=== PATIENT | male | born 1960 | race Caucasian/White ===

== ENCOUNTER 2021-07-17 13:15 | Emergency (ER) | payer OTHER ==
[2021-07-17 13:28] VITALS: BP 140/86; PULSE 65; TEMP 97.7; BMI 28.0
[2021-07-17] MEDS ORDERED: PHENAZOPYRIDINE HCL 100 MG TABLET (FP) PO ONE (13:51)
[2021-07-17] MEDS ORDERED: PHENAZOPYRIDINE HCL 100 MG TABLET (FP) ONE (13:55)
[2021-07-17 14:43] LABS: EPITHELIAL CELLS RARE /hpf
== END 2021-07-17 14:00 | disposition home or self-care (01) ==
LOC: FER 13:15
DX: R35.0 Frequency of micturition (principal); R19.7 Diarrhea, unspecified
CPT/HCPCS: 81003; 81015; 87086; 99283-25

== ENCOUNTER 2021-07-18 17:12 | Emergency (ER) | payer OTHER ==
[2021-07-18 17:28] VITALS: BP 122/72; PULSE 65; TEMP 98; BMI 28.0
== END 2021-07-18 18:20 | disposition home or self-care (01) ==
LOC: FER 17:12
DX: R35.0 Frequency of micturition (principal)
CPT/HCPCS: 81003; 81015; 87086; 99283-25

== ENCOUNTER 2022-07-07 19:11 | Emergency (ER) | payer OTHER ==
[2022-07-07 19:32] VITALS: BP 152/89; PULSE 65; RESP 17; TEMP 98.1; BMI 28.5
[2022-07-07] MEDS ORDERED: AZITHROMYCIN 250 MG TABLET ONE (20:13)
[2022-07-07] MEDS ORDERED: AZITHROMYCIN IVPB 500 MG in DEXTROSE 5%-WATER - 250 ML IVPB ONE (20:15)
[2022-07-07] MEDS ORDERED: AZITHROMYCIN 250 MG TABLET PO ONE (20:16)
== END 2022-07-07 20:40 | disposition home or self-care (01) ==
LOC: FER 19:11
DX: J18.9 Pneumonia, unspecified organism (principal)
CPT/HCPCS: 71046-TC-FY; 99284-25